=== PATIENT | female | born 1995 | race Caucasian/White ===

== ENCOUNTER 2019-03-30 07:24 | Emergency (ER) | payer BC, OTHER ==
[2019-03-30 07:38] VITALS: BP 106/68
--- NOTE | 2019-03-30 07:52 | UC ---
Throat Pain/Nasal Reginaldo HPI - HPI Summary HPI Summary: 24 year old otherwise health female presents with a complaint of sore throat for the past two days. Denies associated fever, chills nor swollen glands. Denies associated congestion, cough nor chest pain. - History of Current Complaint Chief Complaint: UCGeneralIllness Stated Complaint: ST Time Seen by Provider: 03/30/19 07:27 Hx Obtained From: Patient Hx Last Menstrual Period: 03/06/19 ?: No Onset/Duration: Sudden Onset, Lasting Days - 2 Pain Intensity: 3 Associated Signs & Symptoms: Negative: Dysphagia, Drooling, Sinus Discomfort, Nasal Discharge, Fever, Vomiting, Rash - Allergies/Home Medications Allergies/Adverse Reactions: Allergies Allergy/AdvReac Type Severity Reaction Status Date / Time amoxicillin Allergy Intermediate Hives Verified 03/30/19 07:38 Home Medications: Home Medications NK [No Home Medications Reported] 03/30/19 [History Confirmed 03/30/19] PMH/Surg Hx/FS Hx/Imm Hx Previously Healthy: Yes - Surgical History Surgical History: None Surgery Procedure, Year, and Place: wisdom teeth - Family History Known Family History: Positive: Non-Contributory - Social History Alcohol Use: Occasionally Substance Use Type: None Smoking Status (MU): Never Smoked Tobacco - Immunization History Vaccination Up to Date: Yes Review of Systems All Other Systems Reviewed And Are Negative: Yes Constitutional: Positive: Negative Skin: Positive: Negative Eyes: Positive: Negative ENT: Positive: Sore Throat. Negative: Ear Ache, Nasal Discharge, Sinus Congestion, Sinus Pain/Tenderness Respiratory: Positive: Negative Cardiovascular: Positive: Negative Gastrointestinal: Positive: Negative Genitourinary: Positive: Negative Neurovascular: Positive: Negative Musculoskeletal: Positive: Negative Neurological: Positive: Negative Psychological: Positive: Negative Is Patient Immunocompromised?: No Physical Exam Triage Information Reviewed: Yes Appearance: Well-Appearing Vital Signs: Initial Vital Signs Temp 98.3 F 03/30/19 07:28 Pulse 95 03/30/19 07:28 Resp 14 03/30/19 07:28 BP 106/68 03/30/19 07:28 Pulse Ox 100 03/30/19 07:28 Vital Signs Reviewed: Yes Eye Exam: Normal ENT: Positive: Pharyngeal erythema - slight right side with aphthous ulcer developing, TMs normal. Negative: Nasal congestion, Sinus tenderness Neck: Positive: Supple, Nontender, No Lymphadenopathy Respiratory: Positive: Lungs clear, Normal breath sounds Cardiovascular: Positive: RRR, No Murmur Abdomen Description: Positive: Soft Musculoskeletal Exam: Normal Neurological Exam: Normal Psychological Exam: Normal Skin Exam: Normal Throat Pain/Nasal Course/Dx - Differential Dx/Diagnosis Differential Diagnosis/HQI/PQRI: URI Provider Diagnosis: Pharyngitis Discharge ED - Sign-Out/Discharge Documenting (check all that apply): Patient Departure All imaging exams completed and their final reports reviewed: No Studies - Discharge Plan Condition: Stable Disposition: HOME Patient Education Materials: Pharyngitis (ED) Referrals: Diane Limon PA [Primary Care Provider] - Additional Instructions: Recommend warm liquids, Tylenol or Ibuprofen over the counter as needed. Salt water gargles to soothe throat. Follow-up with your primary care physician if your symptoms persist or worsen. - Billing Disposition and Condition Condition: STABLE Disposition: Home
== END 2019-03-30 08:02 | disposition home or self-care (01) ==
LOC: UCCORT 07:24
DX: J02.9 Acute pharyngitis, unspecified (principal); Z88.0 Allergy status to penicillin
CPT/HCPCS: 87651; 99211; G0463